=== PATIENT | male | born 1980 | race Caucasian/White ===

== ENCOUNTER 2019-07-23 18:17 | Observation (INO) | payer SELFPAY ==
[~2019-07-23 18:17] MED LIST: Iopamidol 370 76% 100 ML VIAL ONE
[2019-07-23 19:10] LABS: #Basophils 0.1 thou/uL (0.0-0.2); #Eosinphils 0.1 thou/uL (0.0-0.7); #Lymphocytes 1.6 thou/uL (1.20-3.40); #Monocytes 0.5 thou/uL (0.11-0.59); #Neutrophils 3.3 thou/uL (1.40-6.50); %Basophils 1.4 % (0.0-1.0); %Eosinophils 2.1 % (0.0-10.0); %Lymphocytes 28.4 % (21.0-51.0); %Monocytes 9.1 % (0.0-10.0); %Neutrophils 59.1 % (42.0-75.0); Hemoglobin 16.9 g/dL (14.0-18.0); Mean Corpuscular HGB CONC 33.8 g/dL (32.0-36.0); Mean Corpuscular Hemoglobin 31.6 pg (27.0-31.0); Mean Corpuscular Volume 93.4 fL (78.0-98.0); Mean Platelet Volume 8.4 fL (7.4-10.4); Platelet Count 123 thou/uL (130-400); Red Blood Cell (RBC) Count 5.34 mill/uL (4.70-6.10); White Blood Cell (WBC) Count 5.6 thou/uL (4.8-10.8)
[2019-07-23 19:13] LABS: INR-International Normal Ratio 1.3; Prothrombin Time 15.7 SEC (12.0-14.7)
[2019-07-23 19:29] LABS: ALT (SGPT) 45 U/L (8-55); AST (SGOT) 28 U/L (5-34); Albumin 4.2 g/dL (3.5-5.0); Alkaline Phosphatase 65 U/L (40-110); Anion Gap 16 mmol/L (10-20); BUN (Urea Nitrogen) 11 mg/dL (8.9-20.6); Bilirubin, Total 0.4 mg/dL (0.2-1.2); Calc. Creatinine Clearance 0 mL/min (70-130); Calcium 9.6 mg/dL (7.8-10.44); Carbon Dioxide 26 mmol/L (22-29); Chloride 99 mmol/L (98-107); Estimated GFR-MDRD 85; Glucose 268 mg/dL (70-105); Lipase 34 U/L (8-78); Potassium 3.7 mmol/L (3.5-5.1); Protein, Total 7.2 g/dL (6.0-8.3); Sodium 137 mmol/L (136-145)
--- NOTE | 2019-07-23 20:00 | CT ---
CT ABDOMEN AND PELVIS WITH CONTRAST: 07/23/19 HISTORY: Abdominal pain. COMPARISON: CT abdomen 12/17/17. FINDINGS: According to the notes, the patient was recently admitted to [facility] for a DVT withi n his liver. Mild atelectasis left lung base. No pericardial effusion. The intrahepatic right portal vein appears to be occluded. There is decreased attenuation of the righ t lobe of the liver relative to the left lobe of the liver. There is thrombus in the proximal left po rtal vein. Mild congestive changes proximal small bowel mesentery. Adrenal glands unremarkable. Aortoiliac conto ur is normal. There is some mild congestive changes of the ascending colon. Sutures noted on the cecal apex. No hydronephrosis. There appears to be some retained contrast within the gallbladder lumen. No intrah epatic or extrahepatic biliary dilatation. No acute osseous abnormality. Disc osteophyte complex at L4-5 and L5-S1 causes mild neural foraminal and spinal canal narrowing. Prior partial sigmoid colectomy. IMPRESSION: 1. Portal venous thrombosis extending to the majority of the right portal vein and proximal left portal vein with decreased attenuation throughout the right lobe of the liver. Hepatic veins appear to be patent. 2. Congestive changes from portal venous thrombosis proximal small bowel mesentery and of the as cending colon. 3. Mild splenomegaly mitigating portal hypertension, likely from portal venous thrombosis. POS: HOME
--- NOTE | 2019-07-23 22:17 | PDOC.FPRHP ---
- History of Present Illness Chief Complaint: RUQ Abd pain History of Present Illness: Pt is a 39 yo M with pmh of diverticulitis, HLD, HTN, Gout, Low T and DMII who presents for intractable abdominal pain. He was admitted at [facility] last week and found to have portal vein thrombosis. He was worked up at [facility] in [place] and he was told that the thrombosis could have been caused by the testosterone injections that he was getting once a week for three weeks starting in April for low T. He was treated with Lovenox and warfarin and discharged yesterday, on Thursday. He comes in today with intractable abdominal pain. They sent him with hydrocodone but that was not helping with the pain prompting him to come to the ED. Pain currently is a 4/10 after the pain in the ED. Pain is diffuse and constant, "feels like heartburn", radiates to the back. Denies fever, chills, cough, sore throat, dyspnea, diarrhea, constipation. Dr. Walters was contacted by ED and recommended continuing current regimen with lovenox and warfarin and to treat abdominal pain. ED Course: In the ED, he received 1L of fluid, 8 mg Morphine, and Zofran. - Allergies/Adverse Reactions Allergies Allergy/AdvReac Type Severity Reaction Status Date / Time Penicillins Allergy Verified 07/24/19 01:22 piperacillin [From Zosyn] Allergy Verified 07/24/19 01:22 tazobactam [From Zosyn] Allergy Verified 07/24/19 01:22 - Home Medications Medication Instructions Recorded Confirmed Type Atorvastatin Calcium [Lipitor] 20 mg PO HS 07/24/19 07/24/19 History Dicyclomine [Bentyl Oral Solution] 10 mg PO QID #100 ml 07/24/19 Rx Enoxaparin Sodium [Lovenox] 140 mg SQ BID 07/24/19 07/24/19 History HYDROcodone/Acetaminophen [Chemult 1 tab PO Q4HR PRN 07/24/19 07/24/19 History 5-325 Tablet] Lisinopril [Zestril] 10 mg PO DAILY 07/24/19 07/24/19 History Warfarin Sodium [Coumadin] 5 mg PO DAILY 07/24/19 07/24/19 History metFORMIN [Glucophage] 500 mg PO BID 07/24/19 07/24/19 History - History PMHx: Hx of diverticulitis s/p colectomy, HTN, HLD, DM2, Gout PSHx: Cholecystectomy, Appendectomy FHx: Noncontributory Social: Dip snuff for 20 years, social alcohol use, denies smoking or drugs - Review of Systems General: reports: weight/appetite/sleep changes. denies: fever/chills, night sweats Eyes: denies: eye pain, vision changes ENT: denies: nasal congestion, rhinorrhea Respiratory: denies: cough, congestion, shortness of breath Cardiovascular: denies: chest pain, palpitation, edema, paroxysmal nocturnal dyspnea Gastrointestinal: reports: nausea, vomiting, abdominal pain. denies: diarrhea, constipation Genitourinary: denies: dysuria Skin: denies: rashes, lesions Musculoskeletal: denies: pain, tenderness, stiffness Neurological: denies: numbness, syncope, seizure Psychological: denies: anxiety, depression - Vital signs BP: 96/75 HR: 77 RR: 15 Tmax: 98.3 Pox: 95% on RA Wt: 142 kg - Physical Exam Constitutional: NAD, awake, alert and oriented, well developed HEENT: normocephalic and atraumatic, PERRLA, EOMI, grossly normal vision, grossly normal hearing, MMM Neck: supple, FROM, no JVD Heart: RRR, normal S1/S2, no murmurs/rubs/gallops, pulses present, no edema Lungs: CTAB, no respiratory distress, good air movement, no rales/rhonchi Abdomen: soft, bowel sounds present, no masses/distention Musculoskeletal: normal structure, normal tone, ROM grossly normal Neurological: no focal deficit, CN II-XII intact Skin: no rash/lesions, capillary refill <2 seconds Heme/Lymphatic: no unusual bruising or bleeding, no purpura, no petechia Psychiatric: normal mood and affect, good judgment and insight, intact recent and remote memory FMR H&P: Results - Labs Result Diagrams: 07/24/19 07:07 07/24/19 07:07 Lab results: WBC 5.6 thou/uL (4.8-10.8) 07/23/19 18:54 Hgb 16.9 g/dL (14.0-18.0) 07/23/19 18:54 Hct 49.9 % (42.0-52.0) 07/23/19 18:54 MCV 93.4 fL (78.0-98.0) 07/23/19 18:54 Plt Count 123 thou/uL (130-400) L 07/23/19 18:54 Neutrophils % 59.1 % (42.0-75.0) 07/23/19 18:54 Sodium 137 mmol/L (136-145) 07/23/19 18:54 Potassium 3.7 mmol/L (3.5-5.1) 07/23/19 18:54 Chloride 99 mmol/L (98-107) 07/23/19 18:54 Carbon Dioxide 26 mmol/L (22-29) 07/23/19 18:54 BUN 11 mg/dL (8.9-20.6) 07/23/19 18:54 Creatinine 0.97 mg/dL (0.7-1.3) 07/23/19 18:54 Glucose 268 mg/dL (70-105) H 07/23/19 18:54 Lactic Acid 1.9 mmol/L (0.5-2.2) 07/23/19 18:54 Calcium 9.6 mg/dL (7.8-10.44) 07/23/19 18:54 Total Bilirubin 0.4 mg/dL (0.2-1.2) 07/23/19 18:54 AST 28 U/L (5-34) 07/23/19 18:54 ALT 45 U/L (8-55) 07/23/19 18:54 Alkaline Phosphatase 65 U/L (40-110) 07/23/19 18:54 Serum Total Protein 7.2 g/dL (6.0-8.3) 07/23/19 18:54 Albumin 4.2 g/dL (3.5-5.0) 07/23/19 18:54 Lipase 34 U/L (8-78) 07/23/19 18:54 - EKG Interpretation EKG: NSR, Bifascicular block, no ST changes - Radiology Interpretation CT scan - abdomen Status: image reviewed by me, report reviewed by me (Portal vein thrombosis involving majority of right portal vein and proximal left portal vein, congestive changes and mild splenomegaly) FMR H&P: A/P - Problem List (1) Portal vein thrombosis Status: Acute Code(s): I81 - PORTAL VEIN THROMBOSIS (2) Diabetes mellitus Status: Chronic Code(s): E11.9 - TYPE 2 DIABETES MELLITUS WITHOUT COMPLICATIONS (3) HLD (hyperlipidemia) Status: Chronic Code(s): E78.5 - HYPERLIPIDEMIA, UNSPECIFIED (4) Gout Status: Acute Code(s): M10.9 - GOUT, UNSPECIFIED (5) Diverticulitis Status: Acute Code(s): K57.92 - DVTRCLI OF INTEST, PART UNSP, W/O PERF OR ABSCESS W/O BLEED (6) History of colon resection Status: Acute Code(s): Z90.49 - ACQUIRED ABSENCE OF OTHER SPECIFIED PARTS OF DIGESTIVE TRACT (7) Low testosterone Status: Acute Code(s): R79.89 - OTHER SPECIFIED ABNORMAL FINDINGS OF BLOOD CHEMISTRY (8) Thrombocytopenia Status: Acute Code(s): D69.6 - THROMBOCYTOPENIA, UNSPECIFIED - Plan Pt is a 39 yo M with pmh of diverticulitis, HLD, HTN, Gout, Low T and DMII who presents for intractable abdominal pain. 1. Portal Vein Thrombosis with Intractable Pain Diagnosed @ [facility] * Confirmed on CT today * Unknown workup for Portal Vein Thrombosis * Will obtain records from [facility] * Consider further work up for coagulopathy once records reviewed * Taking Chemult 5- 2 Q6H for pain at home * Pain not alleviated even doubling the dose * Continue current regimen * In ED, received 8 mg of morphine * Morphine 2 mg Q4H prn for breakthrough * Currently on therapeutic Lovenox and Warfarin * INR: 1.3, Goal 2-3 * Case discussed with Dr. Walters by ED * Recommends continue anticoagulation therapy and to treat pain 2. Thrombocytopenia Plts: 123 * Will continue to monitor 3. DMII Continue home medication: Metformin * Insulin naive, so Mild SSI * ACHS BG checks * Hypoglycemia protocol 4. HTN Continue home medication: Lisinopril * BP: 96/75, after receiving morphine * Will continue to monitor 5. HLD Continue home medication: Lipitor 6. Gout Currently not on prophylactic therapy * Will monitor and address as needed 7. Hx of Colon Resection 2/2 Diverticulitis Resection in February 2019 8. Low Testosterone Not currently on therapy due to insurance * Received 3 injections in April Code Status: Full Diet: HHLSo Activity: Ad Katie DVT PPx: Lovenox & Warfarin GI PPx: Pepcid IVF: SL PCP: KEVIN Cordon- [facility] Dispo: Med obs for intractable pain 2/2 to portal vein thrombosis. Review records and perform further workup if needed. LOS < 48H. FMR H&P: Upper Level - Plan Date/Time: 07/23/19 2467 I, Ananth Mitchell MD, have evaluated this patient and agree with findings/plan as outlined by internet marketing strategist resident. Pertinent changes/additions are listed here. Triston Torre is a 39 year old M with a PMH of DM2, HTN, HLD, Gout who presented to the ED for intractible RUQ pain. He was admitted to [facility] recently for similar symptoms and was diagnosed with portal vein thrombosis and discharged 1 day KELLY MACHINE OPERATOR. He was discharged on lovenox and warfarin and Chemult for pain. He states that pain was not controlled at home with norco so he decided to come to [facility]. He is unsure of the work up that was done at [facility] but he was told that the clot could have been caused by the testosterone injections that he was getting for low T. He had only received three doses once a week starting in April. He denies any development of new symptoms since d/c from [facility]. Denies fever, chills, chest pain, dyspnea, cough, n/v/d/c, dysuria, LE edema. In the ED, CT abd was repeated that confirmed portal vein thrombosis in R and L portal vein, patent hepatic veins, mild splenomegaly. He was given morphine, zofran and 1 L NS in the ED. Vitals were BP 124/71, HR 74, RR 14, T 98.3, O2 sat 94% on RA. Labs were INR 1.3, PT 15.7, PTT 34.0, WBC 5.6, Hg 16.7 , Na 137, Cr 0.94, Gluc 263, trop 0.01, lipase 74, Lactic acid 1.9. EKG showed RBBB no ST changes. On exam, Gen in no acute distress, HEENT AT/NC, MMM, EOMI, PERRL, Heart RRR no murmurs, Lungs CTAB, Abd soft, no rigidity, diffuse abdominal ttp worse in RUQ, Ext no cyanosis or edema. We are admitting patient to [facility]. Dr. Walters was consulted in the ED for recs. Recommended continuing current anticoagulation regimen and pain control. Morphine prn for pain. Requesting records from [facility] to see what work up was done for cause of PVT. If we did hypercoagulation studies today, it would likely not be reliable as he has been on lovenox bridging and coumadin. Will place formal GI consult. Please see internet marketing strategist note above for full H&P, which I have reviewed and agree with. Code status: FULL CODE PCP: CC Addendum - Attending - Attending Attestation Date/Time: 07/28/19 2925 I personally evaluated the patient and discussed the management with the team. I agree with the History, Examination, Assessment and Plan documented above with any addition or exceptions noted below. Overall stable, no signs of an acute abdomen. Likely just inadequate pain control prior to dc. Will need to confirm if he had an appropriate coagulopathy workup.
[2019-07-23] MEDS ORDERED: Ondansetron ODT 4 MG TAB PO PRN (23:15)
[2019-07-23] MEDS ORDERED: Acetaminophen 325 MG TAB PO PRN (23:15)
[2019-07-23] MEDS ORDERED: Ondansetron PF 4 MG/2 ML Vial IVP PRN (23:15)
[2019-07-23] MEDS ORDERED: Senokot S 8.6-50 MG TAB PO PRN (23:15)
[2019-07-23] MEDS ORDERED: Acetaminophen 650 MG Suppository PR PRN (23:15)
[2019-07-23] MEDS ORDERED: Dextrose 5% in Water 1,000 ML IV PRN (23:55)
[2019-07-23] MEDS ORDERED: Dextrose 50% Abboject 50 ML SYRINGE SLOW IVP PRN (23:55)
[2019-07-23] MEDS ORDERED: HumaLOG 300 UNITS/3 ML VIAL SC PRN ×2 (23:55)
[2019-07-24] MEDS: Morphine 2 MG/ML SYRINGE SLOW IVP PRN ×3 (00:38→08:47)
[2019-07-24 00:59] VITALS: BMI 41.5
[2019-07-24] MEDS ORDERED: Morphine 4 MG/ML VIAL ONE ×2 (05:26)
[2019-07-24 07:38] LABS: INR-International Normal Ratio 1.4; PTT 31.4 SEC (22.9-36.1)
[2019-07-24 07:41] LABS: #Eosinphils 0.1 thou/uL (0.0-0.7); #Lymphocytes 1.5 thou/uL (1.20-3.40); #Monocytes 0.4 thou/uL (0.11-0.59); #Neutrophils 1.7 thou/uL (1.40-6.50); %Basophils 1.1 % (0.0-1.0); %Eosinophils 2.7 % (0.0-10.0); %Lymphocytes 40.5 % (21.0-51.0); %Neutrophils 45.7 % (42.0-75.0); Hemoglobin 15.6 g/dL (14.0-18.0); Mean Corpuscular Volume 93.8 fL (78.0-98.0); Mean Platelet Volume 8.4 fL (7.4-10.4); Platelet Count 111 thou/uL (130-400); Red Blood Cell (RBC) Count 5.19 mill/uL (4.70-6.10); White Blood Cell (WBC) Count 3.6 thou/uL (4.8-10.8)
[2019-07-24 07:50] LABS: ALT (SGPT) 37 U/L (8-55); AST (SGOT) 20 U/L (5-34); Albumin 3.6 g/dL (3.5-5.0); Alkaline Phosphatase 53 U/L (40-110); Anion Gap 12 mmol/L (10-20); BUN (Urea Nitrogen) 9 mg/dL (8.9-20.6); Bilirubin, Total 0.3 mg/dL (0.2-1.2); Calc. Creatinine Clearance 252 mL/min (70-130); Calcium 9.2 mg/dL (7.8-10.44); Carbon Dioxide 27 mmol/L (22-29); Chloride 104 mmol/L (98-107); Estimated GFR-MDRD Greater than 90; Glucose 124 mg/dL (70-105); Potassium 3.9 mmol/L (3.5-5.1); Protein, Total 6.6 g/dL (6.0-8.3); Sodium 139 mmol/L (136-145)
--- NOTE | 2019-07-24 07:50 | PDOC.FM ---
- Subjective Subjective: Doing well this morning, no acute events overnight. Pain stable, better controlled with pain meds. No n/v. Tolerating PO. Ambulating. Normal BM. Pain described as a burning epigastric pain with episodes of cramping. No sharp stabbing pain. - Objective MAR Reviewed: Yes Vital Signs & Weight: Vital Signs (12 hours) Temp Pulse Resp BP Pulse Ox 07/24/19 07:22 98.2 F 71 19 118/79 95 07/24/19 04:11 98.0 F 77 18 123/79 94 L 07/23/19 23:35 97.5 F L 70 18 118/76 96 Weight Weight 146.782 kg Result Diagrams: 07/24/19 07:07 07/24/19 07:07 Phys Exam - Physical Examination Constitutional: NAD (obese, resting comfortably) HEENT: moist MMs Neck: supple Respiratory: no wheezing, no rales, no rhonchi, clear to auscultation bilateral Cardiovascular: RRR, no significant murmur, no rub Gastrointestinal: soft, no distention, positive bowel sounds mild epigastric TTP Musculoskeletal: no edema Neurological: moves all 4 limbs Psychiatric: normal affect, A&O x 3 Dx/Plan (1) Portal vein thrombosis Code(s): I81 - PORTAL VEIN THROMBOSIS Status: Acute (2) Diabetes mellitus Code(s): E11.9 - TYPE 2 DIABETES MELLITUS WITHOUT COMPLICATIONS Status: Chronic (3) HLD (hyperlipidemia) Code(s): E78.5 - HYPERLIPIDEMIA, UNSPECIFIED Status: Chronic - Plan Plan: 39 yo M with pmh of recent diagnosed portal vein thrombosis, diverticulitis, HLD , HTN, Low T and DMII who presentsed for intractable abdominal pain. #Portal Vein Thrombosis with Intractable Pain - Diagnosed @ [facility] - Confirmed on admission CT - portal vein thrombus present - Will obtain records from [facility] - Consider liver phase CT to eval for malignancy, consider AFP - pending [facility] records - Taking [place] 5 - 2 tablets q6h at home with breakthrough pain, will cont - added morphine prn - Epigastric, cramping/burning pain - will give trial of GI cocktail and bentyl for pain - Cont th lovenox to bridge to warfarin, will check daily INR, has appt with Coumadin clinic #Thrombocytopenia - Plts 123 -> 111 - cont to monitor #DMII - Continue home Metformin, ACHS BG checks, Hypoglycemic protocol #HTN -Continue home Lisinopril, monitor and adjust as needed #HLD - Continue home Lipitor #Hx of Colon Resection 2/2 Diverticulitis - Resection in February 2019 - post op changes could represent some abd pain #Low Testosterone - Not currently on therapy due to insurance - Received 3 injections in April - possibly contributor to cause of portal vein thrombosis Code Status: Full Diet: HHLSo Activity: Ad Katie DVT PPx: Lovenox Bridge to Warfarin GI PPx: Pepcid IVF: SL PCP: KEVIN Cordon- [facility] Dispo: Med obs for intractable pain 2/2 to portal vein thrombosis. Review records and perform further workup if needed. Pain control. LOS < 48H. Addendum - Attending - Attending Attestation Date/Time: 07/24/19 1031 I personally evaluated the patient and discussed the management with Dr. Cazares. I agree with the History, Examination, Assessment and Plan documented above with any addition or exceptions noted below. Patient here for pain associated with new diagnosis of portal vein thrombosis. Workup completed at [facility], records pending. He in on Lovenox and Coumadin, still subtherapeutic despite 1 week of therapy. Will work to get pain controlled and continue anticoagulation. Discussed with patient that he should not expect to be pain free until this condition has settled. Patient receiving Dilaudid at [facility] apparently and requesting that instead of his Hamlin.
[2019-07-24] MEDS ORDERED: Lisinopril 10 MG TAB PO SCH (09:00)
[2019-07-24] MEDS ORDERED: metFORMIN 500 MG TAB PO SCH (09:00)
[2019-07-24] MEDS ORDERED: Enoxaparin Sodium 40 MG/0.4 ML SYRINGE SC SCH (09:00)
[2019-07-24] MEDS ORDERED: Famotidine 20 MG TAB PO SCH (09:00)
[2019-07-24] MEDS: HYDROcodone/Acetaminophen 5/325 mg Tablet PO PRN ×2 (09:36→17:03)
[2019-07-24] MEDS ORDERED: Lidocaine 2% Viscous Solution 10 ML, Aluminum & Magnesium Hydroxide 30 ML SSW SCH (10:15)
[2019-07-24] MEDS ORDERED: Dicyclomine 10 MG/5 ML UDCUP PO SCH ×2 (10:45→17:00)
[2019-07-24 16:11] VITALS: BP 133/81; TEMP 98.4
[2019-07-24] MEDS ORDERED: Warfarin Sodium 5 MG TAB PO SCH (17:00)
[2019-07-24] MEDS ORDERED: Atorvastatin Calcium 20 MG TAB PO SCH (21:00)
--- NOTE | 2019-07-25 12:32 | DIS ---
DATE OF ADMISSION: 07/23/2019 DATE OF DISCHARGE: 07/24/2019 RESIDENT: Antonio Cazares MD ADMITTING ATTENDING: Celestino Leigh MD DISCHARGE ATTENDING: Navi Salazar MD. CONSULTS: None. PROCEDURES: Abdomen and pelvis CT on 07/23/2019, demonstrating portal venous thrombosis extending to the majority of the right portal vein and proximal left portal vein with decreased attenuation throughout the right lobe of the liver. Hepatic veins appear to be patent. Congestive changes from the portal venous thrombosis, proximal small bowel mesentery and of the ascending colon. Mild splenomegaly mitigating portal hypertension likely from portal venous thrombosis. PRIMARY DIAGNOSIS: Portal vein thrombosis with intractable pain. SECONDARY DIAGNOSES: 1. Thrombocytopenia. 2. Type 2 diabetes. 3. Hypertension. 4. Hyperlipidemia. 5. History of colon resection secondary to diverticulitis. 6. Low testosterone. DISCHARGE MEDICATIONS: 1. Bentyl 10 mg p.o. t.i.d. p.r.n. 2. [place] 5 one tablet p.o. q.4 hours p.r.n. 3. Metformin 500 mg p.o. b.i.d. 4. Warfarin 5 mg p.o. daily. 5. Atorvastatin 20 mg p.o. at bedtime. 6. Lovenox 140 mg subcu b.i.d. 7. Lisinopril 10 mg p.o. daily. HISTORY OF PRESENT ILLNESS AND HOSPITAL COURSE: The patient is a 39-year-old male with past medical history of recently diagnosed portal vein thrombus, diverticulitis, hypertension, hyperlipidemia, low testosterone, type 2 diabetes , who presented for intractable abdominal pain. The patient was seen a few days prior at [facility], where he was diagnosed with portal vein thrombus and was started on anticoagulation and discharged home. The patient stated that he since discharge has been having increased abdominal pain, not controlled with his [place] 5 and thus present in the emergency department. In the emergency department, they got a CT abdomen that showed the portal vein thrombus. Vital signs were stable and the patient was admitted for intractable abdominal pain. The patient was continued on his home pain regimen with the addition of morphine p.r.n. The patient described the pain as a burning epigastric pain, thus a GI cocktail and anti acids were prescribed with improvement of that pain. Abdominal pain was also described as crampy in nature and thus, Bentyl was added for improvement in pain as well. Records from [facility] were obtained and reviewed that showed workup for portal vein thrombosis, starting of anticoagulation with bridge to warfarin and plan to follow up with the Coumadin Clinic at [facility] on Thursday, 07/24. Throughout the first day of hospitalization, the patient's pain continued to improve and by that evening, the patient was very eager for discharge stating his pain was much more controlled and he is ready to be discharged home with followup the following day. An AFP tumor marker was obtained that was less than 2. Based on review from [facility] records, it is determined that his venous thrombosis is likely due to his recent testosterone use and he was encouraged to continue to hold this medication until following up with his primary care doctor. Regarding the patient's chronic conditions, home medications were continued. At the time of discharge, the patient was stable. Pain much improved. Vital signs stable and he was eager to be discharged home. Discharge plan discussed with patient at bedside, who voiced agreement and understanding of discharge plan. All questions were answered appropriately. DISPOSITION: Stable. DISCHARGE INSTRUCTIONS: 1. Location: Home. 2. Diet: Heart healthy. 3. Activity: As tolerated. 4. Followup: The patient is to follow up with his primary care physician within 1 week. The patient is to follow up with the Coumadin Clinic as previously directed and to continue using his Lovenox bridge to warfarin anticoagulation. At the time of discharge, his INR is 1.4. Job ID: [id number] MTDD
--- NOTE | 2019-07-29 15:22 | EKG ---
Test Reason : Blood Pressure : / mmHG Vent. Rate : 077 BPM Atrial Rate : 077 BPM P-R Int : 126 ms QRS Dur : 106 ms QT Int : 424 ms P-R-T Axes : 042 124 091 degrees QTc Int : 479 ms Normal sinus rhythm Incomplete right bundle branch block Left posterior fascicular block Abnormal ECG Confirmed by BOB MIJARES DO ([id number]), assistant production editor KALEE RODRIGUEZ ([id number]) on 07/29/2019 3:21:50 PM Referred By: Confirmed By:BOB MIJARES DO
== END 2019-07-24 17:22 | disposition home or self-care (01) ==
LOC: ERS 18:17 → T4-B 22:29 → INTOOBSV 22:29
PROVIDERS: ADMIT Emergency Medicine; ATTEND Emergency Medicine
DX: I81 Portal vein thrombosis (principal); D69.6 Thrombocytopenia, unspecified; E78.5 Hyperlipidemia, unspecified; E11.9 Type 2 diabetes mellitus without complications; I10 Essential (primary) hypertension; M10.9 Gout, unspecified; E34.9 Endocrine disorder, unspecified; Z88.0 Allergy status to penicillin; Z79.01 Long term (current) use of anticoagulants; Z79.84 Long term (current) use of oral hypoglycemic drugs; Z79.899 Other long term (current) drug therapy; Z90.49 Acquired absence of other specified parts of digestive tract
CPT/HCPCS: 36415; 36416; 74177; 80053; 82105; 83605; 83690; 84484; 85025; 85610; 85730; 87040; 93005; 96361; 96372; 96374; 96375; 96376; G0378; J1650; J2270; Q9967